=== PATIENT | female | born 1995 | race Caucasian/White ===

== ENCOUNTER 2016-03-20 23:36 | Inpatient (IN) | payer OTHER, MEDICAID ==
[2016-03-20 23:58] VITALS: BMI 17.2
[2016-03-21] MEDS ORDERED: LR 250 ML IV PRN (00:09)
[2016-03-21] MEDS ORDERED: BUTORPHANOL 1 MG/ML VIAL IV PRN (00:23)
[2016-03-21] MEDS ORDERED: Clindamycin 900 mg/D5W 50 ml 900 MG/50 ML IVB IV SCH (00:23)
[2016-03-21] MEDS ORDERED: LR 500 ML IV PRN ×2 (00:41→01:30)
[2016-03-21 00:46] LABS: AUTOMATED BASOPHIL 0.6 % (0-2); AUTOMATED EOSINOPHIL 0.2 % (0-5); AUTOMATED LYMPH 18.4 % (17-44); AUTOMATED MONOCYTE 8.8 % (3-10)
--- NOTE | 2016-03-21 00:48 | HISTPHYS ---
- HISTORY OF PRESENT ILLNESS Age: 20 Estimated Due Date: 03/20/16 Gestational Age: 38 : 2 Para: 0 Patient Presents to:: Labor & Delivery Presents for:: Contractions. Denies: Decreased Movement, Leaking Fluid, Vaginal Bleeding Details: The patient presents with complaints of contractions that began a few hours ago and have gotten gradually worse. Was found to be 3.5cm dilated and was admitted in labor. Current : GBS + - REVIEW OF SYSTEMS ROS Negative Except As Marked: Yes ROS Negative except as marked Pain: Reports: Abdominal - ALLERGIES Allergies Allergy/AdvReac Type Severity Reaction Status Date / Time ceftriaxone [From Rocephin] Allergy Hives* Verified 03/20/16 23:53 cinnamon [Cinnamon] Allergy Edema-Gener Verified 03/20/16 23:53 alized - PAST MEDICAL HISTORY history kidney stones - PAST SURGICAL HISTORY lithotripsy femur fracture repair - FAMILY HISTORY Family History: Noncontributory - SOCIAL HISTORY Travel Outside of [place] in the Last 3 Months?: No Smoking Status: Former smoker - GENITOURINARY HISTORY HX : 2 Para: 0 Live Deliveries (# of pregnancies resulting in a live ): 0 1 Complications with or Delivery: Reports: SAB/Miscarriage - PHYSICAL EXAM Vital Signs:: Temperature: 98.3 F (03/20/16 23:54) HR: 68 (03/20/16 23:54) RR: 20 (03/20/16 23:54) BP: 135/85 (03/20/16 23:54) Pulse Ox: () GENERAL: Alert, Oriented, No Acute Distress CARDOVASCULAR/CHEST: Normal RESPIRATORY: Normal - CTA ABDOMEN: Bowel Sounds Present, Gravid, Non-Distended, Non-Tender, Soft Fundal Height (cm): 40 GENITOURINARY: Normal, VULVA & INTROITUS (normal with no masses, lesions, rashes , or swelling) EXTERMITIES: Moves All Extremeties, Full ROM. negative: Pain/Tenderness, Defomities Dilation (cm): 3.5 Effacement (%): 90 Station: -1 Heart Rate: 120 Reactive Contractions: Regular Membranes: Intact - ASSESSMENT (ACTIVE PROBLEMS) (1) Post term over 40 weeks Acute O48.0 - POST-TERM (2) GBS (group B Streptococcus carrier), +RV culture, currently Acute O99.820 - STREPTOCOCCUS B CARRIER STATE COMPLICATING - PLAN Admit, Consent, Monitoring, GBS Prophylaxis, Ice Chips, IV Hydration, Monitor Labs, Pain Management Other Plan: Patent is requesting epidural, will call anesthesia
[2016-03-21] MEDS ORDERED: Vaccine Screening Complete SCH (01:00)
[2016-03-21] MEDS ORDERED: LR 1,000 ML IV SCH ×2 (01:00→11:12)
[2016-03-21] MEDS ORDERED: Fentanyl/Bupivacaine 100 ML EPI ONE (01:06)
[2016-03-21] MEDS ORDERED: NALOXONE 0.4 MG/ML AMPULE IV PRN (01:30)
[2016-03-21] MEDS ORDERED: EPHEDrine 50 MG/ML VIAL IV PRN (01:30)
[2016-03-21] MEDS ORDERED: ONDANSETRON HCL 4 MG/2 ML VIAL IV PRN (01:30)
[2016-03-21] MEDS ORDERED: METOCLOPRAMIDE 10 MG/2 ML VIAL IV PRN (01:30)
[2016-03-21] MEDS ORDERED: DIPHENHYDRAMINE 50 MG/ML VIAL IV PRN (01:30)
[2016-03-21] MEDS ORDERED: LR 500 ML IV ONE (01:30)
--- NOTE | 2016-03-21 01:31 | HIM.ANES ---
Anesthesia Evaluation & Plan - Focused Review of Systems Cardiac History: No: Hx Cardiac Disorders HEENT: No: Other HEENT Problems Respiratory: No: Hx Pneumonia Gastrointestinal: Yes: Hx Gastroesophageal Reflux Disease No: Hx Gastrointestinal Disorders, Hx Obstructive Bowel Neurological/Musculoskeletal: No: Hx Neurological Disorders Psychological: Yes Hx Anxiety, No Hx Depression, Yes Hx Mental/Emotional Disorders HX Other Psyco/Soc Problems: ptsd Blood/Autoimmune: No: Hx Blood Transfusions, Hx Anemia, Hx AIDS, Hx Sickle Cell Disease Smoking Status: Former smoker Other Surgical History: 2011 femur surgery right leg - Focused Physical Exam Mallampati: Class II Thyromental Distance: Greater than 3 Neck: Full Range of Motion Dental: Normal - no significant findings Cardiovascular/Chest: Normal Respiratory: Lungs clear Any problems with anesthesia, including nausea and vomiting?: No Any relatives with a history of Malignant Hyperthermia?: No Beta Zeke given (if appropriate): N/A Other: Problem List Problem Status Onset GBS (group B Streptococcus carrier), +RV culture, currently Acute Post term over 40 weeks Acute 27 weeks gestation of Acute 32 weeks gestation of Acute 34 weeks gestation of Acute 37 weeks gestation of Acute Fall (on)(from) sidewalk curb, initial encounter Acute Fall (on)(from) sidewalk curb, initial encounter Acute Hematuria Acute Irregular contractions Acute Left ankle sprain Acute uterine contractions in second trimester, antepartum Acute uterine contractions in third trimester, antepartum Acute CBC/BMP/Other 03/21/16 00:40 Allergies Allergy/AdvReac Type Severity Reaction Status Date / Time ceftriaxone [From Rocephin] Allergy Hives* Verified 03/20/16 23:53 cinnamon [Cinnamon] Allergy Edema-Gener Verified 03/20/16 23:53 alized Home Medications Medication Instructions Recorded Last Taken Type No Home Medications 02/26/16 Unknown History Height and Weight Patient's height 5 ft 6 in Patient's weight 143 lb BMI 17.2 Vital Signs Temperature 98.3 F 03/20/16 23:54 Pulse Rate 68 03/20/16 23:54 Respiratory Rate 20 03/20/16 23:54 Blood Pressure 135/85 03/20/16 23:54 Pulse Oxygen Saturation - Anesthetic Plan Anesthesia Type: Epidural ASA Class: 2, E -: I have examined this patient and reviewed the medical record. The patient has been assessed prior to anesthesia. Risks and benefits of anesthesia and anesthetic technique options have been discussed and all questions answered. The patient accepts the risk and desires me to proceed with the planned anesthetic.
--- NOTE | 2016-03-21 01:33 | HIM.ANESP ---
Procedure Note DATE OF PROCEDURE: 03/21/16 PREOPERATIVE DIAGNOSIS: Labor Pain Control. POSTOPERATIVE DIAGNOSIS: Same PROCEDURE: Epidural PERFORMING PROVIDER: Channing Hines MD DIAGNOSIS: Labor SURGEON: [Rafael] TIME OUT: [0112] Anesthesia START time: [0111] Anesthesia STOP (Delivery) Time : MEDICATIONS: INF Bupivacaine 0.125% + Fentanyl 3mcg/ml ml/hr NEEDLE: Tuohy 17G STERILE BARRIERS: sterile x 3, mask, sterile gloves. APPROACH: [Paramedian Right] ATTEMPTS:[1] COMPLICATIONS: None. BLOOD LOSS: 0 cubic centimeters. PROCEDURE FINDINGS AND TECHNIQUE: At the request of the patient and drawing operator , an Epidural Block was performed for labor pain relief. Epidural Risk, benefits and alternatives of the procedure were explained and questions answered. Informed consent was obtained, confirmed with patient and on chart. Time out was performed. Contraction, Pulse oximetry, EKG and BP monitoring were established. The patient is a [sitting] position and lumbar area was prepped and draped in a sterile manner. Skin anesthesia was obtained with 1% Xylocaine infiltration. The [Epidural] was done in the usual manner. A Tuohy needle was inserted with loss of resistance to [NS] @ [5.5] cm. Local anesthetic was injected in incremental volumes with negative aspirations throughout, Bolus dose: Lidocaine [1] % [4] cc. There was no pain on injection. Epidural catheter threaded [5] cm into epidural space. Test dose Lidocaine 1.5 % with epinephrine 1:200,000, 3 ml via epidural catheter. Negative test dose. SaO2 [99]% EKG SR Infusing Dose Bupivacaine 0.125% + Fentanyl 3mcg/ml ml/hr See Watch Child Record (chart) Patient tolerated the procedure well without complications.
[2016-03-21] MEDS ORDERED: Fentanyl/Bupivacaine 100 ML EPI SCH (02:00)
[2016-03-21] MEDS ORDERED: OXYTOCIN 1,000 ML IV ONE ×2 (03:30→04:13)
[2016-03-21] MEDS ORDERED: LIDOCAINE 1% 30 ML VIAL (PRESERVATIVE FREE) ONE (03:55)
[2016-03-21] MEDS ORDERED: ACETAMINOPHEN 325 MG/TAB TABLET PO PRN (04:13)
[2016-03-21] MEDS ORDERED: HYDROCORTISONE 25 MG SUPP PR PRN (04:13)
[2016-03-21] MEDS ORDERED: ZOLPIDEM TARTRATE 5 MG TAB PO PRN (04:13)
[2016-03-21] MEDS ORDERED: OXYCODONE HCL 5 MG TABLET PO PRN ×2 (04:13)
[2016-03-21] MEDS ORDERED: LANOLIN OINTMENT 0.25 OZ TUBE TOP PRN (04:13)
[2016-03-21] MEDS ORDERED: BISACODYL 10 MG SUPP PR PRN (04:13)
[2016-03-21] MEDS ORDERED: SODIUM CHLORIDE 0.9% 3 ML FLUSH FLUSH PRN (04:13)
[2016-03-21] MEDS ORDERED: DIBUCAINE OINTMENT 1 OZ TUBE TOP PRN (04:13)
--- NOTE | 2016-03-21 04:16 | OBDELNOTE ---
Delivery Note - Problem/Diagnosis (1) Post term over 40 weeks Status: Acute (2) GBS (group B Streptococcus carrier), +RV culture, currently Status: Acute (3) Vaginal delivery Status: Acute (4) Single live Status: Acute (5) Obstetric labial laceration, delivered, current hospitalization Status: Acute - Admitting Diagnosis Reason for Visit: Contractions Admission Date: 03/21/16 Admission time: 00:14 Gestational Age: 40 Labor Anesthesia/Analgesia: IV Medication, Epidural Date: 03/21/16 Time: 03:49 Spontaneous Vaginal Delivery Presentation: Vertex Episiotomy: None Laceration: Labial (bilateral) Repair Agent: 3-0 Chromic EBL: 200 Fluid: Clear Placenta: Spontaneous Description: Normal, Complete Cord: 3 Vessels. Denies: Nuchal Cord - Procedures Procedures: None - Data Order: Bermudez Sex: Male Weight: 3.402 kg (1min): 8 (5min): 9 Feeding Plans for : Breast Complications: No Complications [place] to:: LDRP/Mother's Room - /Operative Complications /Op Complications: None Discharge Planning - REASON FOR ADMISSION Patient Presents to:: Labor & Delivery Reason for Visit: Contractions - DISCHARGE INSTRUCTIONS Discharge Disposition: Home Condition: Good Prescriptions: Hydrocodone Bit/Acetaminophen [[place] 5-325 Tablet] 1 - 2 tab PO Q4H PRN #30 tab PRN Reason: Pain Ibuprofen Tablet [Motrin] 800 mg PO Q6 PRN #45 tab PRN Reason: Pain Referrals: Jazmyn Hall DO [Staff Physician] - Six Weeks Diet at Discharge: Regular Activity: Pelvic Rest Call Physician for: Foul Smelling Discharge, Pain/Redness in Calf/Leg, Soaking Pad in 1 hr, Temperature Above 100.4 Incision, Lacerations, or Tears: Yes
--- NOTE | 2016-03-21 04:18 | PCM.DCS92 ---
<Jazmyn Hall - Last Filed: 03/21/16 04:18> - Primary/Secondary Discharge Diagnoses (1) Post term over 40 weeks Acute O48.0 - POST-TERM (2) GBS (group B Streptococcus carrier), +RV culture, currently Acute O99.820 - STREPTOCOCCUS B CARRIER STATE COMPLICATING (3) Vaginal delivery Acute O80 - ENCOUNTER FOR FULL-TERM UNCOMPLICATED DELIVERY (4) Single live Acute Z37.0 - SINGLE LIVE (5) Obstetric labial laceration, delivered, current hospitalization Acute O70.0 - FIRST DEGREE PERINEAL LACERATION DURING DELIVERY - HOSPITAL COURSE /Op Complications: None - DISCHARGE INSTRUCTIONS Discharge Disposition: Home Discharge Condition: Good Cognitive Discharge Status: Unimpaired Fuctional Discharge Status: Independent Patient Leaving with Prescriptions?: Yes Prescriptions: Hydrocodone Bit/Acetaminophen [[place] 5-325 Tablet] 1 - 2 tab PO Q4H PRN #30 tab PRN Reason: Pain Ibuprofen Tablet [Motrin] 800 mg PO Q6 PRN #45 tab PRN Reason: Pain Referrals: Jazmyn Hall DO [Staff Physician] - 05/03/16 11:00 am - Diet Diet at Discharge: Regular - Activity Activity: Pelvic Rest - Instructions Call Physician for: Foul Smelling Discharge, Pain/Redness in Calf/Leg, Soaking Pad in 1 hr, Temperature Above 100.4 - Incision Incision, Lacerations, or Tears: Yes - DC Summary Notes Discharge Medications: *See "Discharge Medication List" for a complete list of Home Medications and Discharge Medications.* Obstetric Hospital Course - Admitting Diagnosis Reason for Visit: Contractions Admission Date: 03/21/16 Admission time: 00:14 Gestational Age: 38 Labor Anesthesia/Analgesia: IV Medication, Epidural Date: 03/21/16 Time: 03:49 Spontaneous Vaginal Delivery Presentation: Vertex Episiotomy: None Laceration: Labial (bilateral) Repair Agent: 3-0 Chromic EBL: 200 Fluid: Clear Placenta: Spontaneous Description: Normal, Complete Cord: 3 Vessels. Denies: Nuchal Cord - Procedures Procedures: None - Data Order: Bermudez Infant Sex: Male Weight: 3.402 kg (1min): 8 (5min): 9 Feeding Plans for Infant: Breast [place] Complications: No Complications to:: LDRP/Mother's Room - /Operative Complications /Op Complications: None <Alison Key - Last Filed: 03/23/16 09:46> - DC Summary Notes Discharge Medications: *See "Discharge Medication List" for a complete list of Home Medications and Discharge Medications.*
[2016-03-21] MEDS: IBUPROFEN 800 MG TAB PO SCH ×4 (04:30→22:32)
[2016-03-21] MEDS ORDERED: Pharmacy Order Set Alert SCH (05:00)
[2016-03-21] MEDS ORDERED: SODIUM CHLORIDE 0.9% 3 ML FLUSH FLUSH SCH (06:00)
--- NOTE | 2016-03-21 11:12 | OBGYNPROG ---
- Subjective Post Day: 0 Reports: Tolerating Regular Diet, Voiding Freely. Denies: Complaints Pain: Reports: Well Managed, Abdominal Patient resting in bed - Objective Vital Signs: Last Vital Signs Temp 97.5 F 03/21/16 09:45 Pulse 91 03/21/16 09:45 Resp 18 03/21/16 09:45 BP 134/66 03/21/16 09:45 Pulse Ox General: Alert, Oriented, No Acute Distress ABDOMEN: Non-Distended, Non-Tender, Soft Fundus: U - 1, Firm Bladder: Voiding & Emptying OBGYN Progress Note - ASSESSMENT (1) Post term over 40 weeks Status: Acute Code(s): O48.0 - POST-TERM (2) GBS (group B Streptococcus carrier), +RV culture, currently Status: Acute Code(s): O99.820 - STREPTOCOCCUS B CARRIER STATE COMPLICATING (3) Vaginal delivery Status: Acute Code(s): O80 - ENCOUNTER FOR FULL-TERM UNCOMPLICATED DELIVERY (4) Single live Status: Acute Code(s): Z37.0 - SINGLE LIVE (5) Obstetric labial laceration, delivered, current hospitalization Status: Acute Code(s): O70.0 - FIRST DEGREE PERINEAL LACERATION DURING DELIVERY (6) care following vaginal delivery Status: Acute Code(s): Z39.2 - ENCOUNTER FOR ROUTINE FOLLOW-UP - PLAN Routine Care
[2016-03-22] MEDS: IBUPROFEN 800 MG TAB PO SCH ×4 (06:29→23:52)
--- NOTE | 2016-03-22 09:49 | OBGYNPROG ---
- Subjective Post Day: 1 Reports: Ambulating, Out of Bed, Tolerating Regular Diet, Light Bleeding. Denies: Complaints Pain: Reports: None pt seen doing well - Objective Vital Signs: Last Vital Signs Temp 98.0 F 03/22/16 06:31 Pulse 71 03/22/16 06:31 Resp 18 03/22/16 06:31 BP 127/72 03/22/16 06:31 Pulse Ox 03/22/16 06:21 General: Alert, Oriented, No Acute Distress ABDOMEN: Non-Distended, Non-Tender, Soft Fundus: U - 1 Lochia: Small MUSCULOSKELETAL: Normal EXTERMITIES: Moves All Extremeties ISAIAH'S SIGN: Denies: Bilateral OBGYN Progress Note - ASSESSMENT (1) care following vaginal delivery Status: Acute Code(s): Z39.2 - ENCOUNTER FOR ROUTINE FOLLOW-UP - PLAN Continue Present Management
[2016-03-23 05:32] VITALS: BP 129/73; PULSE 77; TEMP 98
[2016-03-23] MEDS: IBUPROFEN 800 MG TAB PO SCH (06:43)
--- NOTE | 2016-03-23 09:46 | OBGYNPROG ---
- Subjective Post Day: 2 Reports: Ambulating, Out of Bed, Tolerating Regular Diet, Voiding Freely. Denies: Complaints - Objective Vital Signs: Temperature: 98 F (03/23/16 05:31) HR: 77 (03/23/16 05:31) RR: 18 (03/23/16 05:31) BP: 129/73 (03/23/16 05:31) Pulse Ox: () General: Alert, Oriented, No Acute Distress HEENT: Normal Cardiovascular/Chest: Normal Respiratory: Normal - CTA ABDOMEN: Soft MUSCULOSKELETAL: Normal EXTERMITIES: Moves All Extremeties. Denies: Edema OBGYN Progress Note - PLAN Routine Care, Discharge
[2016-03-23] MEDS ORDERED: MEASLES,MUMPS,RUBELLA VACCINE SQ ONE (11:44)
== END 2016-03-23 12:36 | disposition home or self-care (01) | DRG 775 ==
LOC: LD 23:36 → MASU 03-21 00:14 → UNDODISIN 03-21 00:18
PROVIDERS: ADMIT Obstetrics & Gynecology; ATTEND Obstetrics & Gynecology
PROC: 10E0XZZ Delivery of Products of Conception, External Approach (ICD-10-PCS; principal; 2016-03-21)
PROC: 0UQMXZZ Repair Vulva, External Approach (ICD-10-PCS; 2016-03-21)
PROC: 3E0S3CZ (ICD-10-PCS; 2016-03-21)
DX: O99.824 Streptococcus B carrier state complicating childbirth (principal); Z37.0 Single live birth; Z3A.40 40 weeks gestation of pregnancy; O70.0 First degree perineal laceration during delivery
CPT/HCPCS: 59400; 62318; 81002; 85014; 85018; 85025; 86592; 86900; 86901; 90471; 90707; 96361; 96365; 96366; 96375; J0595; J2001; J2590; J3490; S0077